=== PATIENT | female | born 1975 | race Two or more races ===

== ENCOUNTER 2018-06-14 09:41 | Emergency (ER) | payer SELFPAY ==
[~2018-06-14] VITALS: Ht 154.9 cm; Wt 74.4 kg
[2018-06-14 10:00] VITALS: BP 112/74
[2018-06-14 10:30] LABS: Urine Bacteria NONE SEEN /hpf (None Seen); Urine Blood Negative /uL (Negative); Urine Mucus FEW (None Seen); Urine Specific Gravity 1.022 (1.001-1.035); Urine WBC <1 /hpf (0 - 5)
[2018-06-14] MEDS ORDERED: KETOROLAC TROMETH 60MG/2ML VIAL IM ONE (11:00)
== END 2018-06-14 11:24 | disposition home or self-care (01) ==
LOC: ER 09:41
DX: S39.012A Strain of muscle, fascia and tendon of lower back, initial encounter (principal); M54.42 Lumbago with sciatica, left side; X50.0XXA Overexertion from strenuous movement or load, initial encounter; Y93.89 Activity, other specified; Y92.89 Other specified places as the place of occurrence of the external cause; Y99.8 Other external cause status
CPT/HCPCS: 81001; 81025; 96372; 99283; J1885

== ENCOUNTER 2019-07-31 15:45 | Emergency (ER) | payer MEDICAID ==
[~2019-07-31] VITALS: Ht 157.5 cm; Wt 73.5 kg
[2019-07-31 20:49] VITALS: BP 111/75
[2019-07-31] MEDS ORDERED: HYDROcodone-ACET 5/325MG TAB PO ONE (22:30)
== END 2019-07-31 22:51 | disposition home or self-care (01) ==
LOC: ER 15:45
DX: S86.912A Strain of unspecified muscle(s) and tendon(s) at lower leg level, left leg, initial encounter (principal); X50.1XXA Overexertion from prolonged static or awkward postures, initial encounter; Y93.89 Activity, other specified; Y92.89 Other specified places as the place of occurrence of the external cause; Y99.8 Other external cause status
CPT/HCPCS: 29515; 73610